=== PATIENT | female | born 1995 | race Caucasian/White ===

== ENCOUNTER 2017-04-16 09:05 | Observation (INO) | payer OTHER ==
[2017-04-16 09:49] LABS: Bacteria FEW /HPF (NEGATIVE); COMPLETE URINE MICROSCOPIC? YES; Collection Type VOID; Epithelial Cells MODERATE /HPF (FEW); Leukocyte Esterase TRACE (NEGATIVE); Mucus SLIGHT /HPF (NEGATIVE)
[2017-04-16 10:52] VITALS: BP 122/58; PULSE 100
== END 2017-04-16 10:50 | disposition home or self-care (01) ==
LOC: OB 09:05
PROVIDERS: ADMIT Family Medicine; ATTEND Family Medicine
DX: Z34.02 Encounter for supervision of normal first pregnancy, second trimester (principal)
CPT/HCPCS: 80307; 81000; G0378

== ENCOUNTER 2017-07-27 19:33 | Observation (INO) | payer OTHER ==
[2017-07-27] MEDS ORDERED: Zofran 4 MG/2 ML VIAL IV PRN (21:16)
[2017-07-27] MEDS ORDERED: Lactated Ringers 1,000 ML IV SCH (22:00)
[2017-07-27 22:54] LABS: Hematocrit 36.9 % (35-47); Hemoglobin 12.2 gm/dl (12.0-16.0); Mean Cell Volume 88.5 fl (78-100); Mean Corpuscular Hemoglobin 29.3 pg (26-32); Mean Corpuscular Hgb Concent. 33.1 g/dl (32-36); Mean Platelet Volume 9.8 fl (6-9.5); Platelet Count 241 K/mm3 (150-450); Red Blood Count 4.17 M/mm3 (4.1-5.4); Red Cell Distribution Width 14.9 % (11.5-14.0); White Blood Count 9.2 K/mm3 (4.0-10.5)
[2017-07-27 23:02] LABS: ANION GAP 13.2 MEQ/L (5-15); BLOOD UREA NITROGEN 7 mg/dL (7-17); CHLORIDE 105 mmol/L (98-107); Calcium 8.6 mg/dL (8.4-10.2); Carbon Dioxide 21 mmol/L (22-30); Creatinine 1 0.62 mg/dL (0.52-1.04); Glucose 76 mg/dL (74-106); Potassium 3.2 mmol/L (3.5-5.1); SODIUM 136 mmol/L (137-145)
[2017-07-28] MEDS: Lactated Ringers 1,000 ML IV SCH ×2 (00:14→06:31)
[2017-07-28 04:53] VITALS: O2SAT 97
[2017-07-28] MEDS ORDERED: Lactated Ringers 1,000 ML IV ONE (06:30)
--- NOTE | 2017-07-28 08:06 | PCM.SSS ---
History of Present Illness - Chief Complaint Chief Complaint: OB check History of Present Illness: is a 22 year old female 37wks EGA arrived with 3 days of nausea, vomiting and diarrhea. No LOF, no vaginal bleeding or contractions. No abd pain , feeling much better after hydration overnight, no vomiting or diarrhea since last night. feels hungry, tolerating clear liquids without difficulty. - Review of Systems Constitutional: No Fever, No Chills Cardiac: No Chest Pain, No Edema, No Syncope Abdominal/Gastrointestinal: Nausea, Vomiting, Diarrhea Genitourinary Symptoms: No Dysuria Skin: No Rash All Other Systems: Reviewed and Negative Medications & Allergies Home Medications: Home Medication List Vits W-Ca,Fe,FA(<1Mg) [] 1 each PO DAILY 04/16/17 [History Confirmed 04/16/17] Ferrous Sulfate 325 mg PO DAILY 07/27/17 [History Confirmed 07/27/17] Allergies/Adverse Reactions: Allergies Allergy/AdvReac Type Severity Reaction Status Date / Time No Known Drug Allergies Allergy Verified 04/16/17 09:58 - Past Medical History Past Medical History: No Neurological History: No Pertinent History ENT History: No Pertinent History Cardiac History: No Pertinent History Respiratory History: No Pertinent History Endocrine Medical History: No Pertinent History Musculoskelatal History: Fractures GI Medical History: No Pertinent History History: No Pertinent History Pyscho-Social History: No Pertinent History Reproductive Disorders: No Pertinent History - Female History Expected Date of Delivery: 08/15/17 - Past Surgical History Past Surgical History: No Neuro Surgical History: No Pertinent History Respiratory Surgery: No Pertinent History GI Surgical History: No Pertinent History Genitourinary Surgical Hx: No Pertinent History Musculskeletal Surgical Hx: No Pertinent History Female Surgical History: No Pertinent History Other Surgical History: hx of bilateral broken wrist without surgical repair - Social History Smoking Status: Former smoker How long have you smoked: 4 yrs Exposure to second hand smoke: No Alcohol: None Drug Use: none - Physical Exam Vital Signs: Vital Signs - 24 hr Temp Pulse Resp BP BP Pulse Ox 07/28/17 04:00 98.5 F 75 20 135/68 97 07/28/17 00:00 98.3 F 51 L 28 H 123/60 98 07/27/17 20:06 98.2 F 62 18 131/76 98 General Appearance: no apparent distress, alert Eye Exam: PERRL/EOMI, eyes nml inspection Respiratory Exam: normal breath sounds, lungs clear, No respiratory distress Cardiovascular Exam: regular rate/rhythm, normal heart sounds, normal peripheral pulses Gastrointestinal/Abdomen Exam: soft, other (gravid), No tenderness Extremity Exam: normal inspection, normal range of motion, pelvis stable Results - Labs Lab/Micro Results: Lab Results-Last 24 Hours 07/27/17 07/27/17 Range/Units 22:51 22:51 WBC 9.2 (4.0-10.5) K/mm3 RBC 4.17 (4.1-5.4) M/mm3 Hgb 12.2 (12.0-16.0) gm/dl Hct 36.9 (35-47) % MCV 88.5 (78-100) fl MCH 29.3 (26-32) pg MCHC 33.1 (32-36) g/dl RDW 14.9 H (11.5-14.0) % Plt Count 241 (150-450) K/mm3 MPV 9.8 H (6-9.5) fl Sodium 136 L (137-145) mmol/L Potassium 3.2 L (3.5-5.1) mmol/L Chloride 105 (98-107) mmol/L Carbon Dioxide 21 L (22-30) mmol/L Anion Gap 13.2 (5-15) MEQ/L BUN 7 (7-17) mg/dL Creatinine 0.62 (0.52-1.04) mg/dL Estimated GFR > 60.0 ML/MIN Glucose 76 (74-106) mg/dL Calcium 8.6 (8.4-10.2) mg/dL Assessment/Plan (1) Nausea and vomiting Current Visit: Yes Status: Acute Assessment & Plan: improved with hydration, will feed breakfast and if tolerates to home Code(s): R11.2 - NAUSEA WITH VOMITING, UNSPECIFIED (2) Diarrhea Current Visit: Yes Status: Acute Code(s): R19.7 - DIARRHEA, UNSPECIFIED (3) Current Visit: Yes Status: Acute Code(s): Z34.90 - ENCNTR FOR SUPRVSN OF NORMAL , UNSP, UNSP TRIMESTER Hospital Summary - Vitals & Intake/Output Vital Signs: Vital Signs Temperature 98.5 F 07/28/17 04:00 Pulse Rate 75 07/28/17 04:00 Respiratory Rate 20 07/28/17 04:00 Blood Pressure 135/68 07/28/17 04:00 O2 Sat by Pulse Oximetry 97 07/28/17 04:00 Intake & Output: Intake & Output 07/25/17 07/26/17 07/27/17 07/28/17 11:59 11:59 11:59 11:59 Intake Total 2062 Output Total 126 Balance 1936 Weight 121.109 kg - Lab Result Diagrams: 07/27/17 22:51 07/27/17 22:51 Lab Results-Last 24 Hrs: Lab Results-Last 24 Hours 07/27/17 07/27/17 Range/Units 22:51 22:51 WBC 9.2 (4.0-10.5) K/mm3 RBC 4.17 (4.1-5.4) M/mm3 Hgb 12.2 (12.0-16.0) gm/dl Hct 36.9 (35-47) % MCV 88.5 (78-100) fl MCH 29.3 (26-32) pg MCHC 33.1 (32-36) g/dl RDW 14.9 H (11.5-14.0) % Plt Count 241 (150-450) K/mm3 MPV 9.8 H (6-9.5) fl Sodium 136 L (137-145) mmol/L Potassium 3.2 L (3.5-5.1) mmol/L Chloride 105 (98-107) mmol/L Carbon Dioxide 21 L (22-30) mmol/L Anion Gap 13.2 (5-15) MEQ/L BUN 7 (7-17) mg/dL Creatinine 0.62 (0.52-1.04) mg/dL Estimated GFR > 60.0 ML/MIN Glucose 76 (74-106) mg/dL Calcium 8.6 (8.4-10.2) mg/dL - Discharge Disposition: Home, Self-Care Condition: Stable Prescriptions: No Action Vits W-Ca,Fe,FA(<1Mg) [] 1 each PO DAILY Ferrous Sulfate 325 mg PO DAILY Follow up with: TITI VIDES MD [Primary Care Provider] - 1 Week
[2017-07-28 09:49] VITALS: BP 123/73; PULSE 93
== END 2017-07-28 09:30 | disposition home or self-care (01) ==
LOC: MED SURG 19:33
PROVIDERS: ADMIT Family Medicine; ATTEND Family Medicine
DX: R11.11 Vomiting without nausea (principal); R19.7 Diarrhea, unspecified; Z34.90 Encounter for supervision of normal pregnancy, unspecified, unspecified trimester
CPT/HCPCS: 36415; 80048; 85027; G0378; J2405

== ENCOUNTER 2017-08-17 08:45 | Inpatient (IN) | payer OTHER ==
[2017-08-17] MEDS ORDERED: BRETHINE 1 MG/ML SQ PRN (17:00)
[2017-08-17] MEDS ORDERED: Phenergan 25 MG INJ IV PRN (17:12)
[2017-08-17] MEDS ORDERED: XYLOCAINE 1% HCL 20 ML MDV IJ PRN (17:12)
[2017-08-17] MEDS ORDERED: Zofran 4 MG/2 ML VIAL IV PRN (17:12)
[2017-08-17] MEDS ORDERED: TYLENOL EXTRA STRENGTH 500 MG PO PRN (17:12)
[2017-08-17] MEDS ORDERED: Cervidil 10 MG VAG SCH (17:30)
[2017-08-17] MEDS ORDERED: PITOCIN 30 UNITS/ LR 500 ML 500 ML IV SCH ×2 (17:30→18:30)
[2017-08-17 17:39] LABS: BASOPHIL % 0.1 % (0.0-0.4); Basophil (Absolute #) 0.01 (0-0.4); Eosinophil % 0.6 % (0.00-5.0); Eosinophil (Absolute #) 0.07 (0-0.5); Granulocyte Absolute (ANC) 8.53 (1.4-6.9); Granulocytes % 77.6 % (36.0-66.0); Hematocrit 36.7 % (35-47); Hemoglobin 12.2 gm/dl (12.0-16.0); Lymphocyte (Absolute #) 1.78 (1.0-4.6); Lymphocytes % 16.2 % (24.0-44.0); Mean Cell Volume 90.2 fl (78-100); Mean Corpuscular Hgb Concent. 33.2 g/dl (32-36); Monocytes % 5.5 % (0.0-12.0); Platelet Count 278 K/mm3 (150-450); Red Blood Count 4.07 M/mm3 (4.1-5.4); Red Cell Distribution Width 15.2 % (11.5-14.0)
[2017-08-17 17:44] LABS: Mean Corpuscular Hemoglobin 29.9 pg (26-32)
[2017-08-17 18:47] LABS: Amphetamine,Urine NEGATIVE (NEGATIVE); Barbiturate,Urine NEGATIVE (NEGATIVE); Benzodiazepine,Urine NEGATIVE (NEGATIVE); Cocaine,Urine NEGATIVE (NEGATIVE); Methadone,Urine NEGATIVE (NEGATIVE); Opiate,Urine NEGATIVE (NEGATIVE); PCP,Urine NEGATIVE (NEGATIVE); THC,Urine NEGATIVE (NEGATIVE)
[2017-08-18] MEDS ORDERED: Lactated Ringers 1,000 ML IV ONE ×2 (05:42→09:03)
[2017-08-18] MEDS: Lactated Ringers 1,000 ML IV SCH ×2 (06:26→20:32)
[2017-08-18] MEDS ORDERED: Ephedrine Sulfate 50 MG/ML IV PRN (09:03)
[2017-08-18] MEDS ORDERED: OB EPIDURAL NAROPIN/SUFENTANIL IN NACL EPIDURAL PRN (09:03)
[2017-08-18] MEDS ORDERED: NORCO 5/325 MG PO PRN (18:02)
[2017-08-18] MEDS ORDERED: CORTISONE 1% CREAM TP PRN (18:02)
[2017-08-18] MEDS ORDERED: Anucort-HC SUPPOSITORY PR PRN (18:02)
[2017-08-18] MEDS ORDERED: Dulcolax 10 MG SUPP PR PRN (18:02)
[2017-08-18] MEDS ORDERED: Restoril 15 MG PO PRN (18:02)
[2017-08-18] MEDS ORDERED: LANSINOH 40 GM TOP PRN (18:02)
[2017-08-18] MEDS ORDERED: Mylicon 80MG PO PRN (18:02)
[2017-08-18] MEDS ORDERED: Ambien 10 MG PO PRN (18:02)
[2017-08-18] MEDS ORDERED: Dermoplast Spray TP PRN (18:02)
[2017-08-18] MEDS: TUCKS TP PRN (19:43)
[2017-08-18] MEDS ORDERED: AMMONIA AROMATIC IH ONE (20:25)
[2017-08-18] MEDS: Colace 100 MG PO SCH (22:35)
[2017-08-19] MEDS: MOTRIN 400 MG PO PRN ×3 (00:08→18:51)
[2017-08-19 05:28] LABS: BASOPHIL % 0.2 % (0.0-0.4); Basophil (Absolute #) 0.03 (0-0.4); Eosinophil % 0.2 % (0.00-5.0); Eosinophil (Absolute #) 0.03 (0-0.5); Granulocyte Absolute (ANC) 13.34 (1.4-6.9); Granulocytes % 79.3 % (36.0-66.0); Hematocrit 29.5 % (35-47); Hemoglobin 9.8 gm/dl (12.0-16.0); Lymphocyte (Absolute #) 2.16 (1.0-4.6); Lymphocytes % 12.8 % (24.0-44.0); Mean Cell Volume 91.6 fl (78-100); Mean Corpuscular Hemoglobin 30.4 pg (26-32); Mean Corpuscular Hgb Concent. 33.2 g/dl (32-36); Mean Platelet Volume 9.9 fl (6-9.5); Monocyte (Absolute #) 1.26 (0.0-1.3); Monocytes % 7.5 % (0.0-12.0); Platelet Count 237 K/mm3 (150-450); Red Blood Count 3.22 M/mm3 (4.1-5.4); Red Cell Distribution Width 15.4 % (11.5-14.0); White Blood Count 16.8 K/mm3 (4.0-10.5)
[2017-08-19] MEDS ORDERED: AMMONIA AROMATIC IH ONE (05:57)
[2017-08-19] MEDS ORDERED: Adacel Vial IM ONE (09:00)
[2017-08-19] MEDS: Colace 100 MG PO SCH ×2 (09:45→21:58)
[2017-08-19] MEDS: FERREX 150 PO SCH (09:45)
[2017-08-19 21:51] VITALS: O2SAT 99
[2017-08-20] MEDS: MOTRIN 400 MG PO PRN ×2 (01:01→15:55)
--- NOTE | 2017-08-20 09:56 | PCM.DS ---
Discharge Summary Date of Admission: 08/18/17 08:45 Admitting Physician: TITI VIDES Consults: Consults on Case 08/18/17 18:03 Notify Physician Primary Care Provider: TITI VIDES Allergies Allergies No Known Drug Allergies Allergy (Verified 08/17/17 17:12) Hospital Summary - Hospital Course Hospital Course: patient delivered by on 08/18 with a term induction. she has no complications, had a second degree perineal laceration repair, no complications. at this time - Vitals & Intake/Output Vital Signs: Vital Signs Temperature 97.5 F 08/20/17 03:20 Pulse Rate 71 08/20/17 03:20 Respiratory Rate 18 08/20/17 03:20 Blood Pressure 122/68 08/20/17 03:20 O2 Sat by Pulse Oximetry 99 08/19/17 21:15 Intake & Output: Intake & Output 08/17/17 08/18/17 08/19/17 08/20/17 11:59 11:59 11:59 11:59 Intake Total 1140 3985 1180 Output Total 400 Balance 1140 3585 1180 Weight 120.656 kg - Lab Result Diagrams: 08/19/17 05:15 Discharge Exam General Appearance: no apparent distress, alert, obese Skin Exam: normal color, warm, dry Respiratory Exam: normal breath sounds, lungs clear, No respiratory distress Cardiovascular Exam: regular rate/rhythm Gastrointestinal/Abdomen Exam: soft, No tenderness, No mass Extremity Exam: normal inspection, normal range of motion Final Diagnosis/Problem List - Final Discharge Diagnosis/Problem (1) Vaginal delivery Current Visit: Yes Status: Acute (2) Second degree perineal laceration during delivery Current Visit: Yes Status: Acute (3) (infant) Current Visit: Yes Status: Acute - Discharge Disposition: Home, Self-Care Condition: Stable Prescriptions: No Action Vits W-Ca,Fe,FA(<1Mg) [] 1 each PO DAILY Ferrous Sulfate 325 mg PO DAILY Follow up with: TITI VIDES MD [Primary Care Provider] - 1 Week
[2017-08-20] MEDS: Colace 100 MG PO SCH (10:22)
[2017-08-20] MEDS: FERREX 150 PO SCH (10:22)
[2017-08-20] MEDS: TUCKS TP PRN (16:40)
[2017-08-20 18:15] VITALS: BP 152/78; PULSE 86
== END 2017-08-20 17:55 | disposition home or self-care (01) | DRG 775 ==
LOC: OB 08:45 → OBSVTOIN 08-18 08:45
PROVIDERS: ADMIT Family Medicine; ATTEND Family Medicine
PROC: 0KQM0ZZ Repair Perineum Muscle, Open Approach (ICD-10-PCS; principal; 2017-08-18)
PROC: 10E0XZZ Delivery of Products of Conception, External Approach (ICD-10-PCS; 2017-08-18)
DX: O70.1 Second degree perineal laceration during delivery (principal); Z37.0 Single live birth; Z3A.40 40 weeks gestation of pregnancy
CPT/HCPCS: 36415; 80307; 85025; 90471; 90715; G0378; J2590; J2795; A9270-GY

== ENCOUNTER 2017-11-01 22:23 | Emergency (ER) | payer OTHER ==
[2017-11-01] MEDS ORDERED: Sodium Chloride 0.9% 1000 ML 1,000 ML IV STA (22:56)
[2017-11-01] MEDS ORDERED: Pepcid 20 MG VIAL IV ONE (22:56)
[2017-11-01] MEDS ORDERED: Compazine 10 MG/2 ML IV ONE (22:56)
--- NOTE | 2017-11-01 22:59 | ERPHSYRPT ---
- History of Present Illness Time Seen by Provider: 11/01/17 22:58 Historian: patient Exam Limitations: no limitations Patient Subjective Stated Complaint: pt is alert and oriented. pt is ambulatory with a steady gait. pt comes in with c/o pain in her abdomen and back. pt states that she began having pain in her RUQ on 10/31/17 at 0100. she stated that over the day it began getting worse and becoming more generalized to her abdomen and back. she states that she has vomited 3x today. pt states that she went to [facility] where they ran labs and a x-ray of her abd and "could not rule out gallbladder but there was no blockage." she was then instructed to follow up with her PCP but has not as of yet. states she plans to tomorrow. bowel sounds present x4. abdoment tender in RUQ upon palpatation. enlarged uterus also noted. pt states that she had a baby two months ago. Triage Nursing Assessment: see above Physician History: pt is alert and oriented. pt is ambulatory with a steady gait. pt comes in with c/o pain in her abdomen and back. pt states that she began having pain in her RUQ on 10/31/17 at 0100. she stated that over the day it began getting worse and becoming more generalized to her abdomen and back. she states that she has vomited 3x today. pt states that she went to [facility] ER where they ran labs and a x-ray of her abdomen and "could not rule out gallbladder but there was no blockage." she was then instructed to follow up with her PCP but has not as of yet. states she plans to tomorrow. pt states that she had a baby two months ago. Timing/Duration: yesterday Abdominal Pain Onset Location: RUQ, epigastric Pain Radiation: no radiation Severity of Pain-Max: mild Severity of Pain-Current: mild Modifying Factors: Improves With: nothing Previous symptoms: no prior history Allergies/Adverse Reactions: No Known Drug Allergies Allergy (Verified 08/17/17 17:12) Home Medications: Ferrous Sulfate 325 mg PO DAILY 07/27/17 [History] Cetirizine HCl [Zyrtec] 10 mg PO 11/01/17 [History] Hx Tetanus, Diphtheria Vaccination/Date Given: Yes Hx Influenza Vaccination/Date Given: No Hx Pneumococcal Vaccination/Date Given: No Immunizations Up to Date: Yes - Review of Systems Constitutional: No Fever, No Chills Eyes: No Symptoms Ears, Nose, & Throat: No Symptoms Respiratory: No Cough, No Dyspnea Cardiac: No Chest Pain, No Edema, No Syncope Abdominal/Gastrointestinal: Abdominal Pain, No Nausea, No Vomiting, No Diarrhea Genitourinary Symptoms: No Dysuria Musculoskeletal: No Back Pain, No Neck Pain Skin: No Rash Neurological: No Dizziness, No Focal Weakness, No Sensory Changes Psychological: No Symptoms Endocrine: No Symptoms All Other Systems: Reviewed and Negative - Past Medical History Pertinent Past Medical History: No Neurological History: No Pertinent History ENT History: No Pertinent History Cardiac History: No Pertinent History Respiratory History: No Pertinent History Endocrine Medical History: No Pertinent History Musculoskeletal History: Fractures GI Medical History: No Pertinent History History: No Pertinent History Psycho-Social History: No Pertinent History Female Reproductive Disorders: No Pertinent History Other Medical History: maryuri wrist fx - Past Surgical History Past Surgical History: No Neuro Surgical History: No Pertinent History Respiratory: No Pertinent History Gastrointestinal: No Pertinent History Genitourinary: No Pertinent History Musculoskeletal: No Pertinent History Female Surgical History: No Pertinent History Other Surgical History: hx of bilateral broken wrist without surgical repair - Social History Smoking Status: Former smoker How long have you smoked: 4 yrs Exposure to second hand smoke: No Drug Use: none Patient Lives Alone: No - Female History Hx Now: No - Nursing Vital Signs Nursing Vital Signs: Initial Vital Signs Temperature 97.6 F 11/01/17 22:24 Pulse Rate 49 L 11/01/17 22:24 Respiratory Rate 16 11/01/17 22:24 Blood Pressure 148/87 11/01/17 22:24 O2 Sat by Pulse Oximetry 99 11/01/17 22:24 Pain Scale Pain Intensity [Right Upper 7 Abdomen] Pain Intensity 7 - Physical Exam General Appearance: no apparent distress, alert Eye Exam: PERRL/EOMI, eyes nml inspection Ears, Nose, Throat Exam: normal ENT inspection, pharynx normal, moist mucous membranes Neck Exam: normal inspection, non-tender, supple, full range of motion Respiratory Exam: normal breath sounds, lungs clear, No respiratory distress Cardiovascular Exam: regular rate/rhythm, normal heart sounds Gastrointestinal/Abdomen Exam: soft, No tenderness, No mass Back Exam: normal inspection, normal range of motion, No CVA tenderness, No vertebral tenderness Extremity Exam: normal inspection, normal range of motion, pelvis stable Neurologic Exam: alert, oriented x 3, cooperative, normal mood/affect, nml cerebellar function, sensation nml, No motor deficits Skin Exam: normal color, warm, dry SpO2: 99 Oxygen Delivery: Room Air - Course Nursing assessment & vital signs reviewed: Yes Ordered Tests: Active Orders 24 hr Category Date Time Status Ultrasound Gallbladder [GALLBLADDER] [US] Routine Exams 11/03/17 Ordered AMYLASE Stat Lab 11/01/17 22:56 Stop Req CBC W DIFF Stat Lab 11/01/17 22:56 Stop Req CMP Stat Lab 11/01/17 22:56 Stop Req HCG QUALITATIVE,SERUM Stat Lab 11/01/17 Stop Req LIPASE Stat Lab 11/01/17 22:56 Stop Req Medication Summary Discontinued Medications Generic Name Dose Route Start Last Admin Trade Name Freq PRN Reason Stop Dose Admin Famotidine 20 mg 11/01/17 22:56 Pepcid 20 Mg Vial IV 11/01/17 22:57 STAT ONE Sodium Chloride 1,000 mls @ 999 mls/hr 11/01/17 22:56 Sodium Chloride 0.9% 1000 Ml IV 11/01/17 23:56 .Q1H1M STA Magnesium Hydroxide 45 ml 11/01/17 23:24 Gi Cocktail 45 Ml (Maalox/Lidocaine) PO 11/01/17 23:25 STAT ONE Pantoprazole Sodium 40 mg 11/01/17 23:24 Protonix 40mg Tablet PO 11/01/17 23:25 STAT ONE Prochlorperazine Edisylate 5 mg 11/01/17 22:56 Compazine 10 Mg/2 Ml IV 11/01/17 22:57 STAT ONE - Progress Progress: unchanged Counseled pt/family regarding: diagnosis, need for follow-up - Departure Time of Disposition: 23:28 Departure Disposition: Home Clinical Impression: Abdominal pain, right upper quadrant Condition: Stable Critical Care Time: No Referrals: TITI VIDES MD [Primary Care Provider] - Instructions: Acute Abdomen (Belly Pain) Additional Instructions: ABDOMINAL PAIN 1. There are several different causes for abdominal pain, some of which may not be able to be identified on initial examination. 2. The important thing to remember is that bodily functions can change in a short period of time. If you notice any of the following symptoms, return to the emergency department or consult your doctor immediately: A. Worsening pain or no improvement in the next 12 hours. B. Increasing, severe abdominal pain C. Blood in stool D. Black stools E. Persistent vomiting F. Fever or chills or other symptoms We have scheduled gallbladder ultrasound for you at [facility]. Please follow the instructions. Follow-up with your primary care doctor after gallbladder ultrasound is done. Prescriptions: PANTOPRAZOLE 40 mg Tablet [Protonix 40MG Tablet] 40 mg PO QPM #30 tab
[2017-11-01] MEDS ORDERED: Protonix 40MG Tablet PO ONE (23:24)
[2017-11-01] MEDS ORDERED: GI COCKTAIL 45 ML (Maalox/Lidocaine) PO ONE (23:24)
[2017-11-01] MEDS ORDERED: Protonix 40MG Tablet ONE (23:55)
[2017-11-01] MEDS ORDERED: MAALOX ES 30 ML UNIT DOSE ONE (23:55)
[2017-11-01] MEDS ORDERED: XYLOCAINE HCl Viscous ONE (23:55)
[2017-11-02 00:03] VITALS: BP 171/102; PULSE 59; O2SAT 100
== END 2017-11-02 00:24 | disposition home or self-care (01) ==
LOC: ED 22:23
DX: R10.11 Right upper quadrant pain (principal); R10.13 Epigastric pain
CPT/HCPCS: 99284; A9270-GY

== ENCOUNTER 2019-01-01 20:40 | Emergency (ER) | payer OTHER ==
[2019-01-01] MEDS ORDERED: DELTASONE 20 MG PO ONE (20:50)
[2019-01-01] MEDS ORDERED: DELTASONE 20 MG ONE (20:55)
[2019-01-01 21:02] VITALS: BP 133/66; PULSE 93
--- NOTE | 2019-01-01 21:06 | ERPHSYRPT ---
- History of Present Illness Time Seen by Provider: 01/01/19 20:50 Source: patient Physician History: Sore throat for the past day. Children have been sick for with strep throat recently Timing/Duration: abrupt onset Severity: moderate ENT Location: throat Prearrival Treatment: no prearrival treatment Modifying Factors: Improves With: nothing Associated Symptoms: sore throat, No ear pain (R), No ear pain (L), No cough, No fever, No chills, No change in hearing, No dizziness, No drooling, No ear drainage, No facial pain/swelling, No jaw pain, No malaise, No motion sickness, No nasal congestion/drainage, No epistaxis, No nasal foreign body, No neck pain , No poor fluid intake, No poor solids intake, No ringing of ears, No swollen glands, No sinus infection, No tooth pain, No difficulty swallowing, No voice change Allergies/Adverse Reactions: No Known Drug Allergies Allergy (Verified 01/01/19 20:58) Home Medications: Cetirizine HCl [Zyrtec] 10 mg PO DAILY 11/01/17 [History] Hx Tetanus, Diphtheria Vaccination/Date Given: Yes Hx Influenza Vaccination/Date Given: No Hx Pneumococcal Vaccination/Date Given: No - Review of Systems Constitutional: No Fever, No Chills Eyes: No Symptoms, No Eye Pain, No Eye Redness, No Vision Changes Ears, Nose, & Throat: Throat Pain, No Ear Pain, No Nose Discharge, No Sinus Drainage, No Epistaxis, No Throat Swelling, No Hoarse, No Stridor Respiratory: No Cough, No Dyspnea Cardiac: No Chest Pain, No Edema, No Syncope Abdominal/Gastrointestinal: No Abdominal Pain, No Nausea, No Vomiting, No Diarrhea Genitourinary Symptoms: No Dysuria, No Hematuria, No Flank Pain Musculoskeletal: No Back Pain, No Neck Pain Skin: No Rash Neurological: No Dizziness, No Focal Weakness, No Sensory Changes Psychological: No Symptoms Endocrine: No Symptoms Hematologic/Lymphatic: No Easy Bleeding, No Easy Bruising All Other Systems: Reviewed and Negative - Past Medical History Pertinent Past Medical History: No Neurological History: No Pertinent History ENT History: No Pertinent History Cardiac History: No Pertinent History Respiratory History: No Pertinent History Endocrine Medical History: No Pertinent History Musculoskeletal History: Fractures GI Medical History: No Pertinent History History: No Pertinent History Psycho-Social History: No Pertinent History Female Reproductive Disorders: No Pertinent History Other Medical History: maryuri wrist fx - Past Surgical History Past Surgical History: No Neuro Surgical History: No Pertinent History Respiratory: No Pertinent History Gastrointestinal: No Pertinent History Genitourinary: No Pertinent History Musculoskeletal: No Pertinent History Female Surgical History: No Pertinent History Other Surgical History: hx of bilateral broken wrist without surgical repair - Social History Smoking Status: Former smoker How long have you smoked: 4 yrs Exposure to second hand smoke: No Drug Use: none Patient Lives Alone: No - Nursing Vital Signs Nursing Vital Signs: Initial Vital Signs Temperature 99.5 F 01/01/19 20:46 Pulse Rate 93 H 01/01/19 20:46 Respiratory Rate 18 01/01/19 20:46 Blood Pressure 133/66 01/01/19 20:46 Pain Scale Pain Intensity 5 - Physical Exam General Appearance: no apparent distress, alert Eye Exam: bilateral eye: PERRL, EOMI Ear Exam: bilateral ear: auricle normal, canal normal, TM normal Nasal Exam: normal inspection, No active bleeding, No discharge Throat Exam: pharynx normal, moist mucus membranes, No pharynx swelling, No pharynx tenderness, No tonsillar exudate, No tonsillar swelling Neck Exam: normal inspection, non-tender, supple, trachea midline, No lymphadenopathy (R), No lymphadenopathy (L), No stiff neck, No tender lateral, No tender midline, No Brudzinski's sign Cardiovascular/Respiratory Exam: normal breath sounds, regular rate/rhythm, heart sounds normal, no JVD, no M/R/G Abdominal Exam: non-tender, soft Neurologic Exam: alert, oriented x 3, 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, sensation nml, No motor deficits Skin Exam: normal color, warm, dry SpO2 Interpretation: normal O2 Delivery: Room Air Ordered Tests: Medication Summary Discontinued Medications Generic Name Dose Route Start Last Admin Trade Name Freq PRN Reason Stop Dose Admin Prednisone 60 mg 01/01/19 20:50 01/01/19 20:59 Deltasone 20 Mg PO 01/01/19 20:51 60 mg STAT ONE Administration Prednisone Confirm 01/01/19 20:55 Deltasone 20 Mg Administered 01/01/19 20:56 Dose 60 mg .ROUTE .[facility] ONE Lab/Rad Data: Laboratory Results 01/01/19 Range/Units 21:35 Group A Strep Antibody NEGATIVE (NEGATIVE) - Progress Progress: improved Progress Note: 01/01/19 22:12 symptoms have improved after taking Prednisone. No respiratory distress. Counseled pt/family regarding: lab results, diagnosis, need for follow-up - Departure Departure Disposition: Home Clinical Impression: Elevated blood pressure reading without diagnosis of hypertension Acute pharyngitis Qualifiers: Pharyngitis/tonsillitis etiology: unspecified etiology Qualified Code(s): J02.9 - Acute pharyngitis, unspecified Condition: Good Critical Care Time: No Referrals: TITI VIDES MD [Primary Care Provider] - Follow Up with PCP/3 days Instructions: Sore Throat, Adult (DC), DASH Diet Additional Instructions: Your strep test that is confirmatory was negative for strep throat today. If symptoms persist, return for reevaluation in the emergency department or with your physician's office. Return immediately back to the Emergency Department if any worsening sore throat, difficulty swallowing, difficulty controlling secretions, any shortness of breath, or any other concerning signs or symptoms it was not present at his return visit for immediate reevaluation in the emergency department. Prescriptions: Prednisone 20 mg [Deltasone 20 mg] 60 mg PO DAILY PRN #9 tablet PRN Reason: Sore Throat Relief
== END 2019-01-01 22:24 | disposition home or self-care (01) ==
LOC: ED 20:40
DX: R03.0 Elevated blood-pressure reading, without diagnosis of hypertension (principal); J02.9 Acute pharyngitis, unspecified; J03.90 Acute tonsillitis, unspecified
CPT/HCPCS: 87651; 99283; A9270-GY

== ENCOUNTER 2019-03-14 16:22 | Emergency (ER) | payer OTHER ==
--- NOTE | 2019-03-14 16:28 | ERPHSYRPT ---
- History of Present Illness Time Seen by Provider: 03/14/19 16:28 Source: patient Exam Limitations: no limitations Physician History: 23 y/o white female presents with 6 day h/o cough and chest congestion. sx worse in last 2 days. mild soa. denies fever, denies abd pain, denies n/v/d. Timing/Duration: day(s) (6), worse Severity of Dyspnea-Max: mild Severity of Dyspnea-Current: mild Possible Cause: no prior episodes Modifying Factors: Improves With: coughing Associated Symptoms: cough, No chest pain/discomfort, No fever Allergies/Adverse Reactions: No Known Drug Allergies Allergy (Verified 01/01/19 20:58) Home Medications: Cetirizine HCl [Zyrtec] 10 mg PO DAILY 11/01/17 [History] Hx Tetanus, Diphtheria Vaccination/Date Given: Yes Hx Influenza Vaccination/Date Given: No Hx Pneumococcal Vaccination/Date Given: No - Review of Systems Constitutional: No Symptoms Eyes: No Symptoms Ears, Nose, & Throat: No Symptoms Respiratory: Cough, Dyspnea, No Stridor, No Wheezing Cardiac: No Symptoms, No Chest Pain Abdominal/Gastrointestinal: No Symptoms Genitourinary Symptoms: No Symptoms Musculoskeletal: No Symptoms Skin: No Symptoms Neurological: No Symptoms Psychological: No Symptoms Endocrine: No Symptoms Hematologic/Lymphatic: No Symptoms Immunological/Allergic: No Symptoms All Other Systems: Reviewed and Negative - Past Medical History Pertinent Past Medical History: No Neurological History: No Pertinent History ENT History: No Pertinent History Cardiac History: No Pertinent History Respiratory History: No Pertinent History Endocrine Medical History: No Pertinent History Musculoskeletal History: Fractures GI Medical History: No Pertinent History History: No Pertinent History Psycho-Social History: No Pertinent History Female Reproductive Disorders: No Pertinent History Other Medical History: maryuri wrist fx - Past Surgical History Past Surgical History: No Neuro Surgical History: No Pertinent History Respiratory: No Pertinent History Gastrointestinal: No Pertinent History Genitourinary: No Pertinent History Musculoskeletal: No Pertinent History Female Surgical History: No Pertinent History Other Surgical History: hx of bilateral broken wrist without surgical repair - Social History Smoking Status: Former smoker How long have you smoked: 4 yrs Exposure to second hand smoke: No Drug Use: none Patient Lives Alone: No - Nursing Vital Signs Nursing Vital Signs: Initial Vital Signs Temperature 99.1 F 03/14/19 16:24 Pulse Rate 81 03/14/19 16:24 Respiratory Rate 22 03/14/19 16:24 Blood Pressure 143/92 03/14/19 16:24 O2 Sat by Pulse Oximetry 96 03/14/19 16:24 Pain Scale Pain Intensity 0 - Physical Exam General Appearance: no apparent distress, alert, anxiety (mild) Eye Exam: PERRL/EOMI, eyes nml inspection Ears, Nose, Throat Exam: hearing grossly normal, normal ENT inspection, normal pharynx Neck Exam: normal inspection, non-tender, supple, full range of motion Respiratory Exam: normal breath sounds, airway intact, wheezing (mild bilat), No chest tenderness, No respiratory distress Cardiovascular/Chest Exam: normal heart sounds, regular rate/rhythm Abdominal/Gastrointestinal Exam: soft, normal bowel sounds, No tenderness Rectal Exam: not done Extremity Exam: non-tender, normal range of motion, normal inspection Neurologic Exam: alert, oriented x 3, cooperative, outpatient coder II-XII nml as tested Skin Exam: normal color, warm, dry Lymphatic Exam: No adenopathy SpO2 Interpretation: normal O2 Delivery: Room Air - Course Nursing assessment & vital signs reviewed: Yes Ordered Tests: Medication Summary Generic Name Dose Route Start Last Admin Trade Name Freq PRN Reason Stop Dose Admin Hydrocodone Bitart/Acetaminophen 10 ml 03/14/19 17:25 Hydrocodone-Acetamin 2.5-108/5 Ml Solution PO 03/14/19 17:26 STAT STA Ceftriaxone Sodium 1,000 mg 03/14/19 17:23 Rocephin 1000 Mg Inj IM 03/14/19 17:24 STAT ONE Methylprednisolone Sodium Succinate 125 mg 03/14/19 17:24 Solu-Medrol 125 Mg IM 03/14/19 17:25 STAT ONE - Progress Progress: unchanged Air Movement: good Blood Culture(s) Obtained: No Antibiotics given: Yes Counseled pt/family regarding: diagnosis, need for follow-up - Departure Departure Disposition: Home Clinical Impression: Bronchitis Condition: Stable Critical Care Time: No Referrals: TITI VIDES MD [Primary Care Provider] - Additional Instructions: drink plenty of fluids. follow up with primary doctor for further management Prescriptions: Albuterol 8 gm Mdi Hfa [Ventolin Hfa MDI] 8 gm IH Q4H #1 hfa.aer.ad Azithromycin 250 mg [Zithromax 250 MG TABLET] 250 mg PO ZPACK #6 tablet Hydrocodone Bit/Acetaminophen [Hydrocodone-Acetaminophen Soln] 10 ml PO Q6H # 120 ml Prednisone 10 mg [Deltasone 10 mg] 10 mg PO TID #12 tablet
[2019-03-14] MEDS ORDERED: Rocephin 1000 MG INJ IM ONE (17:23)
[2019-03-14] MEDS ORDERED: solu-MEDROL 125 MG IM ONE (17:24)
[2019-03-14] MEDS ORDERED: HYDROCODONE-ACETAMIN 2.5-108/5 ML SOLUTION PO STA (17:25)
[2019-03-14] MEDS ORDERED: HYDROCODONE-ACETAMIN 2.5-108/5 ML SOLUTION ONE (17:30)
[2019-03-14] MEDS ORDERED: solu-MEDROL 125 MG ONE (17:31)
[2019-03-14] MEDS ORDERED: Rocephin 1000 MG INJ ONE (17:31)
[2019-03-14 18:04] VITALS: BP 136/78; PULSE 78; O2SAT 97
== END 2019-03-14 18:02 | disposition home or self-care (01) ==
LOC: ED 16:22
DX: J40 Bronchitis, not specified as acute or chronic (principal)
CPT/HCPCS: 96372; 99284; J0696; J2930; A9270-GY

== ENCOUNTER 2019-11-29 21:43 | Emergency (ER) | payer OTHER ==
[2019-11-29 22:01] VITALS: O2SAT 100
[2019-11-29] MEDS ORDERED: TORAdol 30 mg Injection IM ONE (22:08)
--- NOTE | 2019-11-29 22:08 | ERPHSYRPT ---
- History of Present Illness Source: patient Exam Limitations: no limitations Patient Subjective Stated Complaint: pt states that she rolled her ankle walking on the driveway, pt states that she strepped off the driveway on friday Triage Nursing Assessment: pt ambulated into the er, pt is axo x3, c/o left ankle injury, bruising, swelling, and tenderness present to left ankle and foot, pt states 8/10 pain to left ankle, hypertension Physician History: 24 yo wf rolled L ankle 2 days ago. She has no h/o previous ankle trauma. Pt also has an abrasion R pretibial area and has a mild headache. There was no LOC. Method of Injury: fell Occurred: days ago (2 days) Quality: aching Severity of Pain-Max: moderate Severity of Pain-Current: moderate Lower Extremities Pain: ankle: bilateral Modifying Factors: Improves With: movement Associated Symptoms: No unable to bear weight, No dizzy, No fainted, No seizure, No snapping sensation, No popping sensation Allergies/Adverse Reactions: No Known Drug Allergies Allergy (Verified 11/29/19 22:01) Hx Tetanus, Diphtheria Vaccination/Date Given: No (unknown) Hx Influenza Vaccination/Date Given: Yes Hx Pneumococcal Vaccination/Date Given: No Travel Risk - International Travel Have you traveled outside of the country in past 3 weeks: No - Coronavirus Screening Are you exhibiting any of the following symptoms?: No Close contact with a COVID-19 positive Pt in past 14-21 Days: No - Review of Systems Constitutional: No Symptoms Eyes: No Symptoms Ears, Nose, & Throat: No Symptoms Respiratory: No Symptoms Cardiac: No Symptoms Abdominal/Gastrointestinal: No Symptoms Genitourinary Symptoms: No Symptoms Skin: No Symptoms Neurological: No Symptoms Psychological: No Symptoms Endocrine: No Symptoms Hematologic/Lymphatic: No Symptoms Immunological/Allergic: No Symptoms - Past Medical History Pertinent Past Medical History: No Neurological History: No Pertinent History ENT History: No Pertinent History Cardiac History: No Pertinent History Respiratory History: No Pertinent History Endocrine Medical History: No Pertinent History Musculoskeletal History: Fractures GI Medical History: No Pertinent History History: No Pertinent History Psycho-Social History: No Pertinent History Female Reproductive Disorders: No Pertinent History Other Medical History: maryuri wrist fx - Past Surgical History Past Surgical History: Yes Neuro Surgical History: No Pertinent History Respiratory: No Pertinent History Gastrointestinal: Cholecystectomy Genitourinary: No Pertinent History Musculoskeletal: No Pertinent History Female Surgical History: No Pertinent History Other Surgical History: hx of bilateral broken wrist without surgical repair - Social History Smoking Status: Former smoker How long have you smoked: 6 yrs Exposure to second hand smoke: No Drug Use: none Patient Lives Alone: No Significant Family History: no pertinent family hx - Female History Hx Now: No - Nursing Vital Signs Nursing Vital Signs: Initial Vital Signs Temperature 99.3 F 11/29/19 21:48 Pulse Rate 93 H 11/29/19 21:48 Respiratory Rate 14 11/29/19 21:48 Blood Pressure 169/94 11/29/19 21:48 O2 Sat by Pulse Oximetry 100 11/29/19 21:48 Pain Scale Pain Intensity 4 - Physical Exam General Appearance: no apparent distress Eyes, Ears, Nose, Throat Exam: normal ENT inspection, TMs normal, pharynx normal Neck Exam: normal inspection (C-spine nttp) Cardiovascular/Respiratory Exam: normal breath sounds, regular rate/rhythm, heart sounds normal Gastrointestinal/Abdominal Exam: non-tender, soft (Morbidly obes) Back Exam: normal inspection, normal range of motion, CVA tenderness, No vertebral tenderness Hips Exam: bilateral: non-tender, normal inspection, normal range of motion Legs Exam: bilateral leg: non-tender, normal inspection, normal range of motion, no evidence of injury Knees Exam: right knee: other (Abrasion R pretibial area) Ankle Exam: left ankle: ecchymosis (Good pedal pulse, distal sensation, and capillary return), limited range of motion, soft tissue tenderness, swelling Foot Exam: bilateral foot: non-tender, normal inspection, normal range of motion, no evidence of injury DTR - Lower Extremities Exam: knee (R): 2+, knee (L): 2+ Neuro/Tendon Exam: normal sensation, normal motor functions, normal tendon functions, responds to pain, no evidence tendon injury, No motor deficit, No sensory deficit Mental Status Exam: alert, oriented x 3, cooperative, No agitated, No uncooperative, No depressed affect Skin Exam: normal color, warm, dry SpO2 Interpretation: normal SpO2: 100 O2 Delivery: Room Air Ordered Tests: Active Orders 24 hr Category Date Time Status Matthew Bandage Application -[facility] STAT Care 11/29/19 23:02 Completed Cold Application STAT Care 11/29/19 21:52 Completed ANKLE (3 VIEWS) Stat Exams 11/29/19 22:19 Taken Medication Summary Discontinued Medications Generic Name Dose Route Start Last Admin Trade Name Dipti PRN Reason Stop Dose Admin Ketorolac Tromethamine 60 mg 11/29/19 22:08 11/29/19 22:19 Toradol 30 Mg Injection IM 11/29/19 22:09 60 mg STAT ONE Administration Ketorolac Tromethamine Confirm 11/29/19 22:10 Toradol 30 Mg Injection Administered 11/29/19 22:11 Dose 60 mg .ROUTE .STK-MED ONE Ketorolac Tromethamine Confirm 11/29/19 22:18 Toradol 30 Mg Injection Administered 11/29/19 22:19 Dose 60 mg .ROUTE .STK-MED ONE - Progress Progress: improved Progress Note: 11/29/19 23:03 Pain improved w 60mg IM toradol Matthew wrap per nurse/NVI Counseled pt/family regarding: need for follow-up, rad results - Departure Departure Disposition: Home Clinical Impression: Sprained ankle Condition: Stable Critical Care Time: No Referrals: TITI VIDES MD [Primary Care Provider] - Instructions: Ankle Sprain (DC) Additional Instructions: Ice for 12-24 hours Toradol as needed for pain Matthew wrap for 3-4 days Follow up with family MD for continued pain Weight bearing as tolerated Prescriptions: Ketorolac Tromethamine [Toradol] 10 mg PO TID PRN PRN #10 tablet PRN Reason: Pain
[2019-11-29] MEDS ORDERED: TORAdol 30 mg Injection ONE ×2 (22:10→22:18)
[2019-11-29 23:15] VITALS: BP 163/89; PULSE 68
--- NOTE | 2019-11-30 21:23 | XRAY ---
Exam: 3 views of the left ankle from 11/29/2019. Comparison: None. Indication: Fall. Findings: AP, oblique, and lateral radiographs of the left ankle were obtained. I see no acute left ankle fracture or dislocation. There is moderate soft tissue swelling overlying the lateral malleolus. The ankle mortise is well-preserved and uniform. There is some soft tissue prominence overlying the medial aspect of the left hindfoot. It is difficult to tell whether this is projectional or real soft tissue swelling, as the left foot appears rotated on the AP image. An accessory ossicle called the os trigonum is seen posterior to the talus. The subtalar joint and base of the left fifth metatarsal appear intact. No calcaneal spurring is seen. Impression: 1. No acute fracture or dislocation of the left ankle is seen. 2. There is soft tissue swelling/prominence about the left ankle, as discussed above. Correlate clinically.
== END 2019-11-29 23:22 | disposition home or self-care (01) ==
LOC: ED 21:43
DX: S93.402A Sprain of unspecified ligament of left ankle, initial encounter (principal); X50.0XXA Overexertion from strenuous movement or load, initial encounter; X50.9XXA Other and unspecified overexertion or strenuous movements or postures, initial encounter; Y93.9 Activity, unspecified; Y92.9 Unspecified place or not applicable; Y99.9 Unspecified external cause status
CPT/HCPCS: 73610; 96372; 99284; J1885

== ENCOUNTER 2024-07-30 16:58 | Observation (INO) | payer OTHER ==
[2024-07-30 17:20] VITALS: BP 132/80; PULSE 75; RESP 17; TEMP 97.8; O2SAT 99
== END 2024-07-30 17:35 | disposition home or self-care (01) ==
LOC: OB 16:58
PROVIDERS: ADMIT Family Medicine; ATTEND Family Medicine
DX: Z34.93 Encounter for supervision of normal pregnancy, unspecified, third trimester (principal); Z3A.35 35 weeks gestation of pregnancy
CPT/HCPCS: G0378; G0379

== ENCOUNTER 2024-08-26 09:33 | Inpatient (IN) | payer OTHER ==
[2024-08-26] MEDS ORDERED: XYLOCAINE 1% HCL 20 ML MDV IJ PRN (17:00)
[2024-08-26] MEDS ORDERED: BRETHINE 1 MG/ML SQ PRN (17:00)
[2024-08-26] MEDS ORDERED: CYTOTEC PO SCH (17:00)
[2024-08-26] MEDS ORDERED: Lactated Ringers 1,000 ML IV SCH (17:30)
[2024-08-26] MEDS ORDERED: TYLENOL EXTRA STRENGTH 500 MG PO PRN (17:30)
[2024-08-26] MEDS ORDERED: PITOCIN 30 UNITS/ LR 500 ML 30 UNITS/500 ML PLAST..BAG IV SCH (17:30)
[2024-08-26] MEDS ORDERED: Zofran 4 MG/2 ML VIAL IV PRN (17:30)
[2024-08-26 18:15] LABS: Absolute Neutrophil Ct (ANC) 7.97 x10^3/uL (1.56-6.13); BASOPHIL % 0.3 % (0.1-1.2); Basophil (Absolute #) 0.03 x10^3/uL (0.01-0.08); Eosinophil % 1.3 % (0.7-5.8); Eosinophil (Absolute #) 0.14 x10^3/uL (0.04-0.36); Hematocrit 38.1 % (34.1-44.9); IMMATURE GRAN # 0.04 x10^3u/L (0.001-0.031); IMMATURE GRAN % 0.4 % (0.001-0.429); Lymphocyte (Absolute #) 1.98 x10^3/uL (1.18-3.74); Lymphocytes % 18.5 % (19.3-51.7); Mean Cell Volume 90.3 fL (79.4-94.8); Mean Corpuscular Hemoglobin 30.8 pg (25.6-32.2); Mean Corpuscular Hgb Concent. 34.1 g/dL (32.2-35.5); Mean Platelet Volume 10.1 fL (9.4-12.3); Monocyte (Absolute #) 0.55 x10^3/uL (0.24-0.86); Monocytes % 5.1 % (4.7-12.5); Neutrophil % 74.4 % (34.0-71.1); Platelet Count 274 x10^3/uL (182-369); Red Blood Count 4.22 x10^6/uL (3.93-5.22); Red Cell Distribution Width 14.7 % (11.7-14.4); White Blood Count 10.7 x10^3/uL (3.98-10.04)
[2024-08-26 18:25] LABS: Amphetamine,Urine NEGATIVE (NEGATIVE); Barbiturate,Urine NEGATIVE (NEGATIVE); Benzodiazepine,Urine NEGATIVE (NEGATIVE); Cocaine,Urine NEGATIVE (NEGATIVE); Methadone,Urine NEGATIVE (NEGATIVE); Opiate,Urine NEGATIVE (NEGATIVE); PCP,Urine NEGATIVE (NEGATIVE); THC,Urine NEGATIVE (NEGATIVE)
[2024-08-26 18:38] LABS: ABO TYPING A; Antibody Screen NEGATIVE (NEGATIVE); RH TYPING POSITIVE
[2024-08-26] MEDS: CYTOTEC PO SCH (19:16)
[2024-08-27] MEDS ORDERED: Ephedrine Sulfate 50 MG/ML IV PRN (01:55)
[2024-08-27] MEDS: Lactated Ringers 1,000 ML IV ONE (04:44)
[2024-08-27] MEDS: Lactated Ringers 1,000 ML IV SCH (04:46)
[2024-08-27] MEDS: FENTANYL 2 MCG-BUPIV 0.125%-NS 250 ML Epidur 250 ML EPIDURAL SCH (06:02)
[2024-08-27] MEDS: PITOCIN 30 UNITS/ LR 500 ML 30 UNITS/500 ML PLAST..BAG IV SCH (07:52)
[2024-08-27] MEDS ORDERED: PITOCIN 30 UNITS/ LR 500 ML 30 UNITS/500 ML PLAST..BAG IV SCH (07:58)
[2024-08-27] MEDS ORDERED: SUBLIMAZE 100 MCG/2 ML ONE (08:44)
[2024-08-27] MEDS ORDERED: propofoL IV ONE (08:45)
[2024-08-27] MEDS ORDERED: dexAMETHasone sodium phosphate ONE ×2 (08:45)
[2024-08-27] MEDS ORDERED: Xylocaine-Mpf 2% 5 Ml Vial ONE (08:45)
[2024-08-27] MEDS ORDERED: TORAdol 30 mg Injection ONE (08:45)
[2024-08-27] MEDS ORDERED: Quelicin Fliptop 200 MG/10 ML ONE (08:45)
[2024-08-27] MEDS ORDERED: Zofran 4 MG/2 ML VIAL ONE (08:48)
[2024-08-27] MEDS ORDERED: Astramorph-Pf 5 MG/10 ML ONE (08:58)
[2024-08-27 09:18] LABS: VBG BASE EXCESS -3.8 (-2.0-2.0); VBG CARBOXYHEMOGLOBIN 1.6 % T HGB (0.0-6.9); VBG HCO3- 23.9 meq/L (22-28); VBG HEMOGLOBIN 15.9; VBG O2 SATURATION 47.4 (95-100); VBG pH 7.27 (7.32-7.42)
[2024-08-27 09:19] LABS: VBG POTASSIUM 6.1 (3.5-5.1)
[2024-08-27] MEDS ORDERED: KEFZOL 1 GM ONE (09:21)
[2024-08-27] MEDS ORDERED: XYLOCAINE 2%/Epi 1:200000 20ML VIAL MPF ONE (09:22)
--- NOTE | 2024-08-27 09:52 | PCM.NOTE ---
Date and Time: 08/27/24 0947 Subjective Assessment: patient had AROM this morning at 0756, she had reassuring heart tracing. she developed variable decels then a deep prolonged decel. she was checked by OB nurse at 0828 with recognition of cord prolapse. straight to OR and stat c- section performed with delivery at 0839 with great outcome. explained to father of baby risk of infection with emergent situation. will continue kefzol, otherwise case was uncomplicated other than sterile precautions due to nurse elevating head and fast actin required clinically. Objective Exam General Appearance: other (see exam on paper chart and heart tracing) Objective Data Vital Signs: Vital Signs - 24 hr Temp Pulse Resp BP BP Pulse Ox 08/27/24 07:00 122/59 08/27/24 04:04 70 18 131/73 97 08/27/24 04:00 97.6 F 70 18 131/73 97 08/27/24 02:00 69 18 119/53 97 08/27/24 01:22 97.6 F 69 20 119/53 97 08/27/24 00:00 76 08/26/24 23:00 76 18 137/64 94 L 08/26/24 21:01 98.2 F 72 18 136/65 95 08/26/24 21:00 72 18 136/65 95 08/26/24 20:00 98.2 F 75 18 95 08/26/24 18:31 97.6 F 70 18 123/65 97 08/26/24 17:20 97.6 F 70 18 123/65 97 Intake and Output: Intake & Output 08/24/24 08/25/24 08/26/24 08/27/24 11:59 11:59 11:59 11:59 Intake Total 1850 Output Total 50 Balance 1800 Weight 116.12 kg Lab Results: Lab Results-Last 24 Hours 08/26/24 08/26/24 08/26/24 Range/Units 17:15 17:45 17:45 WBC 10.7 H (3.98-10.04) x10^3/uL RBC 4.22 (3.93-5.22) x10^6/uL Hgb 13.0 (11.2-15.7) g/dL Hct 38.1 (34.1-44.9) % MCV 90.3 (79.4-94.8) fL MCH 30.8 (25.6-32.2) pg MCHC 34.1 (32.2-35.5) g/dL RDW 14.7 H (11.7-14.4) % Plt Count 274 (182-369) x10^3/uL MPV 10.1 (9.4-12.3) fL Gran % 74.4 H (34.0-71.1) % Immature Gran % (Auto) 0.4 (0.001-0.429) % Nucleat RBC Rel Count 0.0 (0.00-0.2) % Eos # (Auto) 0.14 (0.04-0.36) x10^3/uL Immature Gran # (Auto) 0.04 H (0.001-0.031) x10^3u/L Absolute Lymphs (auto) 1.98 (1.18-3.74) x10^3/uL Absolute Monos (auto) 0.55 (0.24-0.86) x10^3/uL Absolute Nucleated RBC 0.00 (0.00-0.012) x10^3u/L Lymphocytes % 18.5 L (19.3-51.7) % Monocytes % 5.1 (4.7-12.5) % Eosinophils % 1.3 (0.7-5.8) % Basophils % 0.3 (0.1-1.2) % Absolute Granulocytes 7.97 H (1.56-6.13) x10^3/uL Basophils # 0.03 (0.01-0.08) x10^3/uL pO2/FiO2 Ratio % VBG pH (7.32-7.42) VBG pCO2 at Pat Temp (42-55) mm/Hg VBG pO2 at Pat Temp (25-40) mm/Hg VBG HCO3 (22-28) meq/L VBG O2 Sat (Pedro Luis) (95-100) VBG Base Excess (-2.0-2.0) VBG Hemoglobin VBG Carboxyhemoglobin (0.0-6.9) % T HGB POC Potassium (3.5-5.1) POC Glucometer (74 to 106) mg/dL Urine Opiates Level NEGATIVE (NEGATIVE) Ur Methadone NEGATIVE (NEGATIVE) Urine Barbiturates NEGATIVE (NEGATIVE) Ur Phencyclidine (PCP) NEGATIVE (NEGATIVE) Urine Amphetamine NEGATIVE (NEGATIVE) U Benzodiazepine Level NEGATIVE (NEGATIVE) Urine Cocaine NEGATIVE (NEGATIVE) Urine Marijuana (THC) NEGATIVE (NEGATIVE) ABO Group A Rh Factor POSITIVE Antibody Screen NEGATIVE (NEGATIVE) 08/26/24 08/27/24 Range/Units 21:22 08:43 WBC (3.98-10.04) x10^3/uL RBC (3.93-5.22) x10^6/uL Hgb (11.2-15.7) g/dL Hct (34.1-44.9) % MCV (79.4-94.8) fL MCH (25.6-32.2) pg MCHC (32.2-35.5) g/dL RDW (11.7-14.4) % Plt Count (182-369) x10^3/uL MPV (9.4-12.3) fL Gran % (34.0-71.1) % Immature Gran % (Auto) (0.001-0.429) % Nucleat RBC Rel Count (0.00-0.2) % Eos # (Auto) (0.04-0.36) x10^3/uL Immature Gran # (Auto) (0.001-0.031) x10^3u/L Absolute Lymphs (auto) (1.18-3.74) x10^3/uL Absolute Monos (auto) (0.24-0.86) x10^3/uL Absolute Nucleated RBC (0.00-0.012) x10^3u/L Lymphocytes % (19.3-51.7) % Monocytes % (4.7-12.5) % Eosinophils % (0.7-5.8) % Basophils % (0.1-1.2) % Absolute Granulocytes (1.56-6.13) x10^3/uL Basophils # (0.01-0.08) x10^3/uL pO2/FiO2 Ratio 21.0 % VBG pH 7.27 L (7.32-7.42) VBG pCO2 at Pat Temp 52 (42-55) mm/Hg VBG pO2 at Pat Temp 28 (25-40) mm/Hg VBG HCO3 23.9 (22-28) meq/L VBG O2 Sat (Pedro Luis) 47.4 L (95-100) VBG Base Excess -3.8 L (-2.0-2.0) VBG Hemoglobin 15.9 VBG Carboxyhemoglobin 1.6 (0.0-6.9) % T HGB POC Potassium 6.1 H* (3.5-5.1) POC Glucometer 127 H (74 to 106) mg/dL Urine Opiates Level (NEGATIVE) Ur Methadone (NEGATIVE) Urine Barbiturates (NEGATIVE) Ur Phencyclidine (PCP) (NEGATIVE) Urine Amphetamine (NEGATIVE) U Benzodiazepine Level (NEGATIVE) Urine Cocaine (NEGATIVE) Urine Marijuana (THC) (NEGATIVE) ABO Group Rh Factor Antibody Screen (NEGATIVE) Medications: Medications Generic Name Dose Route Start Last Admin Trade Name Freq PRN Reason Stop Dose Admin Acetaminophen 1,000 mg 08/26/24 17:30 Acetaminophen 500 Mg Tablet PO 09/25/24 17:29 Q4H PRN PRN HEADACHE/MILD PAIN/ FEVER Ephedrine Sulfate 10 mg 08/27/24 01:55 Ephedrine Sulfate 50 Mg/Ml IV 09/26/24 01:54 PRN PRN SBP<100 Lactated Ringer's 1,000 mls @ 125 mls/hr 08/26/24 17:00 08/27/24 07:51 Lactated Ringers IV 09/25/24 16:59 125 mls/hr .Q8H ELSI Administration Lactated Ringer's 1,000 mls @ 125 mls/hr 08/26/24 17:30 Lactated Ringers IV 09/25/24 17:29 .Q8H ELSI Oxytocin/Lactated Ringer's 30 units in 500 mls @ 5 mls/hr 08/26/24 17:30 Pitocin 30 Units/ Lr 500 Ml IV 09/25/24 17:29 .Q24H ELSI FENTANYL/BUPIVACAINE/NS/PF 250 mls @ 0 mls/hr 08/27/24 02:00 08/27/24 06:02 Fentanyl 2 Mcg-Bupiv 0.125%-Ns 250 Ml Epidur EPIDURAL 09/26/24 01:59 10 mls/hr .Q0M ELSI Administration Protocol Titrate Oxytocin/Lactated Ringer's 30 units in 500 mls @ 2 mls/hr 08/27/24 07:58 Pitocin 30 Units/ Lr 500 Ml IV 09/25/24 16:59 .Q24H ELSI Protocol Cefazolin Sodium 2 gm in 100 mls @ 200 mls/hr 08/27/24 14:00 Cefazolin 2 Gm/100 Ml Nacl IV 09/26/24 13:59 Q8HT ELSI Lidocaine HCl 20 ml 08/26/24 17:00 Lidocaine Hcl 1% 20 Ml Mdv 20 Ml Ml IJ 09/25/24 16:59 UD PRN Ondansetron HCl 4 mg 08/26/24 17:30 Ondansetron Hcl 4 Mg/2 Ml Vial IV 09/25/24 17:29 Q4H PRN PRN NAUSEA/VOMITING Terbutaline Sulfate 0.25 mg 08/26/24 17:00 Terbutaline Sulfate 1 Mg/Ml Vial SQ 09/25/24 16:59 PRN PRN Discontinued Medications Generic Name Dose Route Start Last Admin Trade Name Freq PRN Reason Stop Dose Admin Cefazolin Sodium Confirm 08/27/24 09:21 Cefazolin Sodium 1 Gm Vial Administered 08/27/24 09:22 Dose 2 g .ROUTE .STK-MED ONE Dexamethasone Sodium Phosphate Confirm 08/27/24 08:45 Dexamethasone Sodium Phosphate 4 Mg/Ml Vial Administered 08/27/24 08:46 Dose 4 mg .ROUTE .STK-MED ONE Dexamethasone Sodium Phosphate Confirm 08/27/24 08:45 Dexamethasone Sodium Phosphate 4 Mg/Ml Vial Administered 08/27/24 08:46 Dose 4 mg .ROUTE .STK-MED ONE Fentanyl Citrate Confirm 08/27/24 08:44 Fentanyl Citrate 100 Mcg/2 Ml* Vial Administered 08/27/24 08:45 Dose 100 mcg .ROUTE .STK-MED ONE Oxytocin/Lactated Ringer's 30 units in 500 mls @ 10 mls/hr 08/26/24 17:00 08/27/24 07:52 Pitocin 30 Units/ Lr 500 Ml IV 09/25/24 16:59 10 mls/hr .Q24H ELSI Administration UD Lactated Ringer's 1,000 mls @ 999 mls/hr 08/27/24 01:55 08/27/24 04:44 Lactated Ringers IV 08/27/24 02:55 999 mls/hr .Q1H1M ONE Administration Ketorolac Tromethamine Confirm 08/27/24 08:45 Ketorolac Tromethamine 30 Mg/Ml Inj Administered 08/27/24 08:46 Dose 30 mg .ROUTE .STK-MED ONE Lidocaine HCl Confirm 08/27/24 08:45 Lidocaine - Mpf 2% 5 Ml Vial Administered 08/27/24 08:46 Dose 5 ml .ROUTE .STK-MED ONE Lidocaine/Epinephrine Confirm 08/27/24 09:22 Lidocaine Hcl/Epinephrine 2% 20 Ml Vial Mpf Administered 08/27/24 09:23 Dose 20 ml .ROUTE .STK-MED ONE Misoprostol 0 mcg 08/26/24 17:00 Misoprostol 100 Mcg Tablet PO 08/27/24 06:59 Q2H ELSI Taper Misoprostol 50 mcg 08/26/24 18:00 08/27/24 05:16 Misoprostol 100 Mcg Tablet PO 08/27/24 07:59 50 mcg Q2H ELSI Administration Taper Morphine Sulfate Confirm 08/27/24 08:58 Morphine Sulfate 5 Mg/10 Ml Pf Ampul Administered 08/27/24 08:59 Dose 5 mg .ROUTE .STK-MED ONE Ondansetron HCl Confirm 08/27/24 08:48 Ondansetron Hcl 4 Mg/2 Ml Vial Administered 08/27/24 08:49 Dose 4 mg .ROUTE .STK-MED ONE Propofol Confirm 08/27/24 08:45 Propofol 200 Mg/20 Ml Vial Administered 08/27/24 08:46 Dose 200 mg IV .STK-MED ONE Succinylcholine Chloride Confirm 08/27/24 08:45 Succinylcholine Chloride 200mg/10 Ml Vial Administered 08/27/24 08:46 Dose 200 mg .ROUTE .STK-MED ONE Multi-Disciplinary Progress Notes: Multi-Disciplinary Progress Notes 08/27/24 09:20 Respiratory Note by Sallie Chen 0830 CODE RAPID CALLED ON PATIENT. PATIENT BEING WHEELED TO OR UPON RT ARRIVAL. WARMER SET UP FOR . SEVERIANO T AND INTUBATION SUPPLIES READY FOR DELIVERY. 0839 BABY BORN AT 0839 VIA . BABY CRYING AND PURPLE. BABY DRIED AND STIMULATED AND WARMED. BABY PINKED UP O2 SAT 89% AT 3 MINUTES. 0845 CORD VBG RAN AND REPORTED TO DR. BLANCO. NO OTHER RT INTERVENTIONS NEEDED. Initialized on 08/27/24 09:20 - END OF NOTE Assessment/Plan (1) Umbilical cord, prolapsed Current Visit: Yes Status: Acute Code(s): O69.0XX0 - LABOR AND DELIVERY COMPLICATED BY PROLAPSE OF CORD, UNSP (2) Gestational diabetes mellitus Current Visit: Yes Status: Acute Code(s): O24.419 - GESTATIONAL DIABETES MELLITUS IN , UNSP CONTROL (3) Term Current Visit: Yes Status: Acute Code(s): Z34.90 - ENCNTR FOR SUPRVSN OF NORMAL , UNSP, UNSP TRIMESTER
[2024-08-27] MEDS: Dextrose 5%-Lr IV Solution 1000 ML 1,000 ML IV SCH (12:15)
[2024-08-27] MEDS ORDERED: CLARITIN 10 MG PO PRN (16:12)
[2024-08-27] MEDS ORDERED: MORPHINE SULFATE 2 MG INJ IV PRN (16:12)
[2024-08-27] MEDS ORDERED: Narcan 0.4 MG/ML IV PRN (16:12)
[2024-08-27] MEDS ORDERED: DEMEROL 50 MG IV PRN (16:12)
[2024-08-27] MEDS ORDERED: Nubain 10 MG/ML IV PRN (16:12)
[2024-08-27] MEDS ORDERED: CORTISONE 1% CREAM TP PRN (16:15)
[2024-08-27] MEDS ORDERED: Mylicon 80MG PO PRN (16:15)
[2024-08-27] MEDS ORDERED: Anucort-HC SUPPOSITORY PR PRN (16:15)
[2024-08-27] MEDS ORDERED: Dulcolax 10 MG SUPP PR PRN (16:15)
[2024-08-27] MEDS ORDERED: NORCO 5/325 MG PO PRN (16:15)
[2024-08-27] MEDS ORDERED: TUCKS TP PRN (16:15)
[2024-08-27] MEDS ORDERED: Dermoplast Spray TP PRN (16:15)
[2024-08-27] MEDS ORDERED: BENADRYL 50 MG/ML IV PRN (16:16)
[2024-08-27] MEDS ORDERED: Compazine 10 MG/2 ML IV PRN (16:17)
[2024-08-27] MEDS: PERCOCET TABLET 5/325MG PO PRN (17:25)
[2024-08-27] MEDS: LANSINOH 40 GM TOP PRN (17:26)
[2024-08-27] MEDS: CEFAZOLIN 2 GM/100 ML NaCl 2 GM/100 ML IVPB IV SCH (17:27)
[2024-08-27] MEDS: Augmentin 875-125 Tablet PO SCH (19:30)
[2024-08-27] MEDS: Docusate Sodium 100 MG PO SCH (21:29)
[2024-08-28 06:08] LABS: Absolute Neutrophil Ct (ANC) 6.71 x10^3/uL (1.56-6.13); BASOPHIL % 0.2 % (0.1-1.2); Basophil (Absolute #) 0.02 x10^3/uL (0.01-0.08); Eosinophil % 0.7 % (0.7-5.8); Eosinophil (Absolute #) 0.07 x10^3/uL (0.04-0.36); Hematocrit 28.6 % (34.1-44.9); Hemoglobin 9.5 g/dL (11.2-15.7); IMMATURE GRAN # 0.04 x10^3u/L (0.001-0.031); IMMATURE GRAN % 0.4 % (0.001-0.429); Lymphocyte (Absolute #) 2.53 x10^3/uL (1.18-3.74); Lymphocytes % 24.5 % (19.3-51.7); Mean Cell Volume 92.9 fL (79.4-94.8); Mean Corpuscular Hemoglobin 30.8 pg (25.6-32.2); Mean Corpuscular Hgb Concent. 33.2 g/dL (32.2-35.5); Monocyte (Absolute #) 0.96 x10^3/uL (0.24-0.86); Monocytes % 9.3 % (4.7-12.5); Neutrophil % 64.9 % (34.0-71.1); Platelet Count 242 x10^3/uL (182-369); Red Blood Count 3.08 x10^6/uL (3.93-5.22); Red Cell Distribution Width 15.2 % (11.7-14.4); White Blood Count 10.3 x10^3/uL (3.98-10.04)
[2024-08-28] MEDS: MOTRIN 400 MG PO PRN (09:05)
[2024-08-28] MEDS: FERREX 150 PO SCH (09:06)
[2024-08-28] MEDS: KEFLEX 500 MG PO SCH (10:20)
[2024-08-28 12:02] LABS: RPR Non Reactive (Non Reactive)
[2024-08-28] MEDS: THERAGRAN MULTIVITAMIN PO SCH (13:11)
[2024-08-28] MEDS: Adacel Vial IM ONE (19:54)
[2024-08-29 04:36] VITALS: TEMP 97.9
[2024-08-29 07:45] VITALS: RESP 16; O2SAT 98
--- NOTE | 2024-08-29 08:17 | PCM.DS ---
Discharge Summary Date of Admission: 08/27/24 07:56 Admitting Physician: TITI VIDES Consults: Consults on Case 08/27/24 01:56 Notify Anesthesia Provider PRN Primary Care Provider: TITI VIDES Allergies Allergies No Known Drug Allergies Allergy (Verified 08/26/24 16:40) Hospital Summary - Hospital Course Hospital Course: patient was admitted for induction of labor at 39wks, shortly after AROM patient had a cord prolapse and emergency . she is doing great , taking ibuprofen for pain. ambulating, voiding and tolerating po intake with mild lochia. no post-op complications, her son Rubén - Vitals & Intake/Output Vital Signs: Vital Signs Temperature 97.9 F 08/29/24 07:44 Pulse Rate 82 08/29/24 07:44 Respiratory Rate 16 08/29/24 07:44 Blood Pressure 114/58 08/29/24 07:44 O2 Sat by Pulse Oximetry 98 08/29/24 07:44 Intake & Output: Intake & Output 08/26/24 08/27/24 08/28/24 08/29/24 11:59 11:59 11:59 11:59 Intake Total 2450 3422 1000 Output Total 1350 1000 2 Balance 1100 2422 998 Weight 116.12 kg - Lab Result Diagrams: 08/28/24 05:28 Lab Results-Last 24 Hrs: Lab Results-Last 24 Hours 08/26/24 Range/Units 17:45 RPR Non Reactive (Non Reactive) - Procedures and Test Procedures and Tests throughout Hospitalization: Therapy Orders & Screens 08/27/24 09:27 Standby STAT Comment: Diagnosis: IUP Induction Discharge Exam General Appearance: no apparent distress, obese Neurologic Exam: alert, oriented x 3 Respiratory Exam: normal breath sounds, lungs clear, No respiratory distress Cardiovascular Exam: regular rate/rhythm, normal heart sounds Gastrointestinal/Abdomen Exam: soft, other (optifoam dressing clean, dry, intact) Extremity Exam: normal inspection, normal range of motion Final Diagnosis/Problem List - Final Discharge Diagnosis/Problem (1) delivery delivered Current Visit: Yes Status: Acute Code(s): O82 - ENCOUNTER FOR DELIVERY WITHOUT INDICATION (2) Umbilical cord, prolapsed Current Visit: Yes Status: Acute Code(s): O69.0XX0 - LABOR AND DELIVERY COMPLICATED BY PROLAPSE OF CORD, UNSP (3) Gestational diabetes mellitus Current Visit: Yes Status: Acute Code(s): O24.419 - GESTATIONAL DIABETES MELLITUS IN , UNSP CONTROL (4) Term Current Visit: Yes Status: Acute Code(s): Z34.90 - ENCNTR FOR SUPRVSN OF NORMAL , UNSP, UNSP TRIMESTER - Discharge Disposition: Home, Self-Care Condition: Stable Prescriptions: New Cephalexin Mh 500 mg [Keflex 500 mg] 500 mg PO QID #20 cap Continue Vit 93/Iron Fum/Folic [ Formula Tablet] 1 tab PO DAILY Cetirizine HCl [Zyrtec] 10 mg PO DAILY Changed Ferrous Sulfate 325 mg [Feosol 325 mg] 325 mg PO DAILY #0 Discontinued Metformin HCl 500 mg [Glucophage 500 MG] 500 mg PO BID Amoxicillin/Potassium Clav [Amox-Clav 875-125 mg Tablet] 1 tab PO BID Follow up with: TITI VIDES MD [Primary Care Provider, [facility]] - 1 Week
[2024-08-29 14:19] VITALS: BP 120/61; PULSE 91
--- NOTE | 2024-08-30 08:47 | OP ---
SURGERY DATE/TIME: 08/27/2024 [id number] PREOPERATIVE DIAGNOSES: 1) Umbilical cord prolapse. 2) Term intrauterine . 3) Gestational diabetes mellitus. POSTOPERATIVE DIAGNOSES: 1) Umbilical cord prolapse. 2) Term intrauterine . 3) Gestational diabetes mellitus. PROCEDURE: Emergency low transverse section. SURGEON: Derek Mcdermott MD ANESTHESIA: General, by Jose L Khalil CRNA. QUANTITATIVE BLOOD LOSS: 950 mL. SPECIMENS: Placenta was sent for pathology. DESCRIPTION OF PROCEDURE AND FINDINGS: Briefly, this patient is a 29-year-old 2, para 1, who was admitted to OB for induction of labor at 39 weeks with a history of gestational diabetes well controlled with oral metformin. She had a growth ultrasound at 36 weeks that showed baby measuring around the 50th percentile. She was felt to be fairly favorable for induction, and when I saw her on the morning of 08/27/2024, she was 2 to 3 cm dilated, 75% effaced, with -2 to -3 station. Amniotic membranes were ruptured, and she had already had epidural anesthesia placed. She had clear fluid return and initially had reassuring heart tones with no immediate complications following artificial rupture of membranes. Within 20 to 30 minutes, she developed fairly variable decelerations with 1 prolonged decel. At that point, obstetrical nurse checked her and felt a cord loop below the scalp. Therefore, the stat emergency was called at that time, and patient was taken to the operating room. She underwent general anesthesia quickly. Her abdomen was prepped, but full drapes were not placed due to the urgent nature of the situation as the obstetrical nurse was feeling faint pulsation in the cord by the time we got to the OR. Due to the urgency of the situation, I immediately made a low transverse skin incision by knife, carried it down through the subcutaneous fat to the level of the fascia, which was nicked on both sides of the midline and extended in horizontal using curved Villaseñor scissors. Superior edge of the fascia was grasped with Earle clamps. The underlying rectus muscles were dissected free. The same was repeated inferiorly. Then, the peritoneal cavity was bluntly opened, and quickly a horizontal uterine incision was made by knife and carried down to the level of the amniotic membranes which were artificially ruptured. A viable male was delivered from the vertex presentation with a nuchal cord x1 which was reduced after delivery and his oropharynx and nares were bulb suctioned free, and he had good spontaneous respirations and good tone immediately after delivery. He was handed off to the awaiting nursery team. Then, the cord was clamped and cut prior to him being handed off, of course. Next, the placenta was manually extracted. The uterus was exteriorized, and the uterine cavity was sponge curetted clean with a lap sponge. Uterine incision was closed with #1 chromic in a running locked fashion. There was an extension in the left lower aspect of the uterine surface which was visualized under the bladder blade and likewise repaired with chromic suture down to the base with good hemostasis and good closure. The posterior cul-de-sac was irrigated, and the uterus was returned to the peritoneal cavity. The lateral gutters were wiped free of blood and clot. At that point, I verified with the OR team that she had clear urine with no blood in her Pak. The uterine incision was noted to be hemostatic. Again, the inferior extension appeared to have good closure and good hemostasis at that point. Next, the fascia was closed with 0 Vicryl in a running fashion. Good closure and good hemostasis were achieved at that level. Subcutaneous fat was irrigated with warm sterile saline, and 2-0 Vicryl sutures were used to close the space with interrupted sutures placed. Then, finally, the skin layer was closed with 4-0 undyed Vicryl in a running subcuticular fashion. Steri-Strips and an occlusive dressing were placed over the incision. Quantitative blood loss was likely overestimated due to irrigation due to urgent nature of the procedure and not accurately being able to account for irrigation at that point. Again, full draping and sterile procedures were unable to be followed strictly due to the emergent nature and need for immediate delivery of this compromised infant. To that effect, I plan to continue her on IV antibiotics for the next 24 hours and monitor her closely for any signs of infection.
== END 2024-08-29 18:25 | disposition home or self-care (01) | DRG 788 ==
LOC: OB 17:01 → OBSVTOIN 08-27 07:56
PROVIDERS: ADMIT Family Medicine; ATTEND Family Medicine
PROC: 10D00Z1 Extraction of Products of Conception, Low, Open Approach (ICD-10-PCS; principal; 2024-08-27)
DX: O69.0XX0 Labor and delivery complicated by prolapse of cord, not applicable or unspecified (principal); O24.429 Gestational diabetes mellitus in childbirth, unspecified control; Z3A.39 39 weeks gestation of pregnancy; Z37.0 Single live birth
CPT/HCPCS: 36415; 80307; 82805; 82947; 85025; 86592; 86850; 86900; 86901; 90471; 90715; 94799; G0378; G0379; J0330; J0690; J1100; J1885; J2274; J2405; J2590; J2704; J3010; L0625; A9270-GY

== ENCOUNTER 2024-08-31 15:07 | Emergency (ER) | payer OTHER ==
--- NOTE | 2024-08-31 15:43 | ERPHSYRPT ---
- History of Present Illness Time Seen by Provider: 08/31/24 15:40 Source: patient Exam Limitations: no limitations Physician History: 29-year-old female 4 days post presents to our ED with concerns of bruising around the site. Patient states the was emergent because of a prolapsed cord. She reports her child is well. Patient also feels her right leg is somewhat more swollen versus the left. Patient denies active pain at this time. Patient reports that she followed up with [facility] today. She states all was well at that visit. After she got home she noticed incision site. Patient became concerned and came to our ED for an evaluation. No unusual vaginal discharge. at bedside. They voiced no other complaints or concerns at this time. Portions of this note were created with voice recognition technology. There may be grammatical, spelling, punctuation or sound alike errors Timing/Duration: today Severity: mild Modifying Factors: Improves With: nothing Associated Symptoms: denies symptoms Allergies/Adverse Reactions: No Known Drug Allergies Allergy (Verified 08/26/24 16:40) Home Medications: Vit 93/Iron Fum/Folic [ Formula Tablet] 1 tab PO DAILY 08/27/24 [History] Hx Tetanus, Diphtheria Vaccination/Date Given: No (unknown) Hx Influenza Vaccination/Date Given: Yes Hx Pneumococcal Vaccination/Date Given: No Travel Risk - Emerging Infectious Disease Are you exhibiting symptoms associated with any current EIDs: No - Review of Systems Constitutional: No Symptoms, No Fever, No Chills Eyes: No Symptoms Ears, Nose, & Throat: No Symptoms Respiratory: No Symptoms, No Cough, No Dyspnea Cardiac: No Symptoms, No Chest Pain, No Edema, No Syncope Abdominal/Gastrointestinal: No Symptoms, No Abdominal Pain, No Nausea, No Vomiting, No Diarrhea Genitourinary Symptoms: No Symptoms, No Dysuria Musculoskeletal: No Symptoms, No Back Pain, No Neck Pain Skin: No Symptoms, No Rash Neurological: No Symptoms, No Dizziness, No Focal Weakness, No Sensory Changes Psychological: No Symptoms Endocrine: No Symptoms Hematologic/Lymphatic: No Symptoms Immunological/Allergic: No Symptoms All Other Systems: Reviewed and Negative - Past Medical History Pertinent Past Medical History: Yes Neurological History: No Pertinent History ENT History: No Pertinent History Cardiac History: No Pertinent History Respiratory History: No Pertinent History Endocrine Medical History: No Pertinent History Musculoskeletal History: Fractures GI Medical History: No Pertinent History History: No Pertinent History Psycho-Social History: No Pertinent History Female Reproductive Disorders: No Pertinent History Other Medical History: maryuri wrist fx - Past Surgical History Past Surgical History: Yes Neuro Surgical History: No Pertinent History Cardiac: No Pertinent History Respiratory: No Pertinent History Gastrointestinal: Cholecystectomy Genitourinary: No Pertinent History Musculoskeletal: No Pertinent History Female Surgical History: No Pertinent History Other Surgical History: hx of bilateral broken wrist without surgical repair Significant Family History: no pertinent family hx - Social History Drug Use: none - Social Determinants of Health Will the patient participate in the screening: Yes Do you worry about a steady place to live?: No In the past 12 months,have you had to go without utilities?: No Transportation Issues: No Has anyone in your support network made you feel unsafe?: No Have you or anyone in your house had to go w/o enough food: No - Nursing Vital Signs Nursing Vital Signs: Initial Vital Signs Temperature 97.6 F 08/31/24 15:33 Pulse Rate 102 H 08/31/24 15:33 Respiratory Rate 16 08/31/24 15:33 Blood Pressure 129/80 08/31/24 15:33 O2 Sat by Pulse Oximetry 100 08/31/24 15:33 Pain Scale Pain Intensity 0 - Physical Exam General Appearance: no apparent distress, alert Eye Exam: PERRL/EOMI, eyes nml inspection Ears, Nose, Throat Exam: normal ENT inspection, moist mucous membranes Neck Exam: normal inspection, full range of motion Respiratory Exam: normal breath sounds, lungs clear, No respiratory distress Cardiovascular Exam: regular rate/rhythm, normal heart sounds, normal peripheral pulses Gastrointestinal/Abdomen Exam: soft, normal bowel sounds, No tenderness, No mass Back Exam: normal inspection, normal range of motion, No CVA tenderness, No vertebral tenderness Extremity Exam: normal inspection, normal range of motion, pelvis stable, other (Slight swelling of the right lower extremity versus the left. Negative Homans' sign. The involved extremities neurovascular intact distally compartments are soft cap refill less than 2 seconds.) Neurologic Exam: alert, oriented x 3, cooperative, normal mood/affect, sensation nml, No motor deficits Skin Exam: normal color, warm, dry, other (Postoperative wound is healing well. No signs of infection no cellulitis no active drainage no tenderness), No rash Lymphatic Exam: No adenopathy SpO2 Interpretation: normal O2 Delivery: Room Air - Course Nursing assessment & vital signs reviewed: Yes - Radiology Ultrasound Exam Venous Lower Extremity Ultrasound: negative (No DVT per rubber insulator) Ordered Tests: Active Orders 24 hr Category Date Time Status VENOUS UNILAT/LIMITED EXTREMIT [US] Stat Exams 08/31/24 15:39 Ordered - Progress Progress: improved Progress Note: 29-year-old female presents to our ED for a wound check. The wound is healing well. There is some swelling of the right lower extremity versus the left. Ultrasound right lower extremity negative for DVT. Patient otherwise asymptomatic. No indication for further workup will discharge home. Patient agrees to follow-up with her primary care doctor within 48 hours for reevaluation. Portions of this note were created with voice recognition technology. There may be grammatical, spelling, punctuation or sound alike errors Complexity of problem addressed is moderate acute complicated. No critical care time. Complexity of data reviewed and analyzed is moderate. Test ordered test reviewed results analyzed and correlated clinically with history and physical exam. Risk of complication and or risk of morbidity/mortality of patient management is low. Vital stable. Time spent to discharge patient is approximately 15 minutes. Plan of care established for shared decision making. No social determinants of health present to impede follow-up. Portions of this note were created with voice recognition technology. There may be grammatical, spelling, punctuation or sound alike errors 08/31/24 16:40 Counseled pt/family regarding: diagnosis, need for follow-up, rad results - Departure Departure Disposition: Home Clinical Impression: Visit for wound check, Leg swelling Condition: Stable Critical Care Time: No Referrals: TITI VIDES MD [Primary Care Provider, [facility]] - Follow up/PCP as directed Additional Instructions: Discharge/Care Plan THONG ANDERSON was seen on 08/31/24 in the Emergency Room. The patient was counseled regarding Diagnosis,Lab results, Imaging studies, need for follow up and when to return to the Emergency Room. Prescriptions given: Discharge Note I have spoken with the patient and/or caregivers. I have explained the patient's condition, diagnosis and treatment plan based on the information available to me at this time. I have answered the patient's and/or caregiver's questions and addressed any concerns. The patient and/or caregivers have as good understanding of the patient's diagnosis, condition and treatment plan as can be expected at this point. The vital signs have been stable. The patient's condition is stable and appropriate for discharge from the emergency department. The patient will pursue further outpatient evaluation with the primary care physician or other designated or consulting physician as outlined in the discharge instructions. The patient and/or caregivers are agreeable to this plan of care and follow-up instructions have been explained in detail. The patient and/or caregivers have received these instruction. The patient/and or caregivers are aware that any significant change in condition or worsening of symptoms should prompt an immediate return to this or the closest emergency department or call 911.
[2024-08-31 15:52] VITALS: PULSE 102; RESP 16; TEMP 97.6
[2024-08-31 16:32] VITALS: BP 126/80; O2SAT 97
--- NOTE | 2024-08-31 22:18 | XRAY ---
Indication: Swelling. 2-dimensional sonogram and color Doppler imaging major venous vessels right leg performed. Comparison: None No thrombus seen in the examined deep venous vessels right leg including greater saphenous vein. Veins demonstrate normal compressibility. Venous waveforms are normal with and without augmentation. Impression: Right leg negative for DVT.
== END 2024-08-31 16:55 | disposition home or self-care (01) ==
LOC: ED 15:07
DX: Z48.01 Encounter for change or removal of surgical wound dressing (principal); M79.89 Other specified soft tissue disorders
CPT/HCPCS: 93971; 99283